=== PATIENT | female | born 1980 | race Caucasian/White ===

== ENCOUNTER 2016-10-23 08:43 | Emergency (ER) | payer OTHER ==
[2016-10-23] MEDS ORDERED: IOPAMIDOL 300 (61%) 150 ML VIAL IV ONE (08:44)
[2016-10-23 09:10] LABS: PH,URINE 6.5 (5.0-8.0); SPECIFIC GRAVITY 1.015 (1.001-1.030); URINE BILIRUBIN NEGATIVE (NEGATIVE); URINE BLOOD TRACE (NEGATIVE); URINE GLUCOSE (UA) NEGATIVE (NEGATIVE); URINE LEUKOCYTE ESTERASE TRACE (NEGATIVE); URINE NITRITE NEGATIVE (NEGATIVE); URINE PROTEIN NEGATIVE (NEGATIVE); URINE UROBILINOGEN NORMAL (0-1 mg/dl)
[2016-10-23 09:11] LABS: HCG,QUALITATIVE URINE NEGATIVE
[2016-10-23 09:12] LABS: URINE APPEARANCE CLEAR; URINE COLOR YELLOW
[2016-10-23 09:20] LABS: URINE BACTERIA TRACE; URINE WBC RARE /hpf
[2016-10-23] MEDS ORDERED: FAMOTIDINE 20 MG TABLET ONE (09:28)
[2016-10-23] MEDS ORDERED: MAALOX/LIDO2%VISC/SIMETHICONE 40 ML BOT ONE (09:28)
[2016-10-23] MEDS ORDERED: PROCHLORPERAZINE 5 MG/ML 2 ML VIAL ONE (09:29)
[2016-10-23] MEDS ORDERED: SUCRALFATE 1 G/10 ML DOSE ONE (09:29)
[2016-10-23] MEDS ORDERED: LACTATED RINGERS 1,000 ML ONE (09:29)
[2016-10-23] MEDS ORDERED: MORPHINE SULFATE 4 MG/ML SYRINGE ONE (09:29)
[2016-10-23 09:38] LABS: ABSOLUTE NEUTROPHIL COUNT 4.6 K/mm3 (1.8-7.7); BASO % 0.6 % (0.2-1.0); HEMATOCRIT 40.4 % (37.0-47.0); HEMOGLOBIN 13.4 gm/l (12.0-16.0); IMM NEUT% 0.3 % (0-1); LYMPH # 1.7 (1.0-4.8); LYMPH % 24.4 % (15-45); MEAN CELL VOLUME 93.5 fl (81.0-99.0); MEAN CORPUSCULAR HGB CONC 33.2 g/dl (33.0-37.0); MEAN PLATELET VOLUME 8.9 fl (7.4-10.4); MONO # 0.6 (0.0-0.8); MONO % 8.6 % (4-12); NEUT % 66.1 % (43-75); PLATELET COUNT 506 K/mm3 (130-400); RED CELL DISTRIBUTION WIDTH 13.2 % (11.5-14.5)
[2016-10-23 09:55] LABS: ALB/GLOB RATIO 1.2 (>1.0); ALBUMIN 4.2 gm/dL (3.5-5.7); CALCIUM 9.4 mg/dL (8.6-10.3)
--- NOTE | 2016-10-23 10:14 | CT ---
Exam: CT abdomen and pelvis with contrast COMPARISON: 01/14/2015 INDICATION: Epigastric pain, left upper quadrant pain. TECHNIQUE: CT examination of the abdomen and pelvis was obtained following the administration 125 Isovue-300 venous contrast. FINDINGS: No acute inflammatory changes are seen within the abdomen or pelvis. There is fluid rather than formed stool within the colon, correlate for diarrhea. Scattered nondilated loops of fluid-filled small bowel are appreciated. No focal bowel thickening is identified. There is no bowel obstruction, free air or free intraperitoneal fluid. The appendix is normal. There are at least 3 nonobstructing calculi within the right kidney which measure up to 7 mm and 2 nonobstructing calculi within the left kidney which measure up to 3 mm. There is no hydronephrosis or perinephric stranding. Kidneys enhance normally. There is 11 mm cyst in the lower pole the right kidney. There is no solid renal mass. The liver, spleen, pancreas, adrenal glands and gallbladder are unremarkable. The uterus is present and within normal limits. There is no adnexal mass. There is no pelvic lymphadenopathy or fluid collection. Urinary bladder unremarkable. Lung bases are clear. No worrisome osseous abnormality is identified. IMPRESSION: 1. There is fluid rather than formed stool within the colon along with scattered nondilated loops of small bowel, correlate for enteritis. No complicating features are seen. 2. Nephrolithiasis. No hydronephrosis. 11 mm right renal cyst. 3. Otherwise unremarkable CT examination of the abdomen and pelvis. Message left for Dr. Omer Simeon with [facility] in the ED at 9 hours 10/23/2016.
== END 2016-10-23 10:52 | disposition home or self-care (01) ==
LOC: ED 08:43
DX: R10.9 Unspecified abdominal pain (principal); R19.7 Diarrhea, unspecified
CPT/HCPCS: 83690; 81025; 85025; 80053; 81001; 74177; 96375; 99284 ×2; 96374; 96361; 93005; A9270 ×3; J0780; J2270; J7120; Q9967

== ENCOUNTER 2016-10-24 14:25 | Emergency (ER) | payer OTHER ==
[2016-10-24] MEDS ORDERED: IBUPROFEN 600 MG TABLET ONE (15:18)
[2016-10-24] MEDS ORDERED: LACTATED RINGERS 1,000 ML ONE (15:18)
[2016-10-24] MEDS ORDERED: ACETAMINOPHEN 325 MG TABLET ONE (15:18)
[2016-10-24 15:39] LABS: ABSOLUTE NEUTROPHIL COUNT 7.3 K/mm3 (1.8-7.7); BASO % 0.3 % (0.2-1.0); HEMATOCRIT 37.2 % (37.0-47.0); HEMOGLOBIN 12.3 gm/l (12.0-16.0); IMM NEUT% 0.3 % (0-1); LYMPH # 1.6 (1.0-4.8); LYMPH % 16.4 % (15-45); MEAN CELL VOLUME 94.2 fl (81.0-99.0); MEAN CORPUSCULAR HEMOGLOBIN 31.1 pg (27.0-31.0); MEAN CORPUSCULAR HGB CONC 33.1 g/dl (33.0-37.0); MEAN PLATELET VOLUME 9.1 fl (7.4-10.4); MONO # 0.8 (0.0-0.8); MONO % 7.7 % (4-12); NEUT % 75.3 % (43-75); PLATELET COUNT 424 K/mm3 (130-400); RED CELL DISTRIBUTION WIDTH 13.4 % (11.5-14.5)
--- NOTE | 2016-10-24 16:23 | RAD ---
10/24/2016 4:19 PM CHEST - 2 VIEWS History: Chest pain, shortness of breath and fever. Comparison: None Findings: Two views of the chest are obtained. The lungs are clear with out effusion or pneumothorax. The cardiomediastinal silhouette is unremarkable.. The osseous structures are intact.. IMPRESSION: No acute intrathoracic process.
== END 2016-10-24 17:25 | disposition home or self-care (01) ==
LOC: ED 14:25
DX: J06.9 Acute upper respiratory infection, unspecified (principal); R07.89 Other chest pain; R06.02 Shortness of breath
CPT/HCPCS: 83605; 85379; 84703; 85025; 80048; 84484; 71020; 87804; 99283 ×2; 96360; 96361; 93005; A9270 ×2; J7120